=== PATIENT | female | born 1980 | race Caucasian/White ===

== ENCOUNTER 2025-01-19 08:00 | Outpatient (RCR) | payer OTHER, SELFPAY ==
[2024-08-11 17:12] LABS: Estradiol Premenol Female 95 pg/mL
[2024-08-11 21:49] LABS: Follicle Stimulating Hormone 12.5 IU/L
--- NOTE | 2024-09-14 10:43 | ONC.NURNOTE ---
N has left several messages requesting return call to discuss endocrine therapy. Patient is pre-menopausal and Dr. Kent is recommending Tamoxifen. Rx was sent to her pharmacy to begin after radiation is completed. Patient will need to follow up with provider 3 months after starting Tamoxifen.
--- NOTE | 2024-09-28 15:20 | ONC.NURNOTE ---
Patient returned call to discuss endocrine therapy. She is starting to feel normal again after completing radiation therapy. She has not started Tamoxifen as her radiation team recommended waiting about a month from completion of radiation treatments. We reviewed the side effects of Tamoxifen. Patient encouraged to call with abnormal vaginal bleeding, symptoms of blood clots or with questions/concerns. 3 month follow up scheduled.
[2025-01-19 07:59] VITALS: BP 126/78; PULSE 58; RESP 18; TEMP 36.4; O2SAT 98
[2025-01-19 08:53] LABS: Calcium* 8.7 mg/dL (8.4-10.6); Creatinine* 0.6 mg/dL (0.5-1.5); Est. Creatinine Clearance* 119.44; Estimated Glomerular Filt Rate 113 ml/min
[2025-01-19] MEDS: ZOLEDRONIC ACID 4 MG in 0.9 % SODIUM CHLORIDE 100 ml 100 ML 420 MG IVPB (09:30)
== END 2025-01-19 23:59 | disposition home or self-care (01) ==
LOC: CCIC 08:00
PROVIDERS: Internal Medicine Hematology & Oncology; PCP Student in an Organized Health Care Education/Training Program; Referring Provider Student in an Organized Health Care Education/Training Program; Visit Provider Physician Assistant
DX: C50.912 Malignant neoplasm of unspecified site of left female breast (principal); Z17.0 Estrogen receptor positive status [ER+]; Z29.89 Encounter for other specified prophylactic measures; Z79.810 Long term (current) use of selective estrogen receptor modulators (SERMs); Z79.899 Other long term (current) drug therapy
CPT/HCPCS: 36415; 82310; 82565; 82670; 83001; 96365; 99202; 99205; 99213; 99214; G0463; J3489